=== PATIENT | male | born 2005 | race Caucasian/White ===

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

== ENCOUNTER 2025-04-27 09:47 | Outpatient (REF) | payer OTHER, SELFPAY ==
--- OUTSIDE RECORDS SUMMARY | 2025-04-27 10:18 | XMS_ITS | Clinical Summary ---
Author Organization [facility] Address [address] [place] [address] Phone Care Team Providers Care Electric Meter Tester Shop Name Role Phone Frederick Boswell MD Primary Care Provider Encounters Date Type Department Care Team Description 04/14/[address] [address] Micah Payton MD, MPH Appointment (Motility Consult) 03/30/[address] [address] Micah Payton MD, MPH Appointment (Motility consult) from Last 3 Months Social History Tobacco Use Types Packs/Day Years Used Date Smoking Tobacco: Never Assessed Education Answer Date Recorded Are you interested in more education? Not on devin e 01/25/2025 Are you concerned about learning? Not on file 01/25/2025 No 01/25/2025 No 01/25/2025 Digital Access Answer Date Recorded No 01/25/2025 No 01/25/2025 Reliable internet access at home? Not on file 01/25/2025 Device with a working camera? Not on file Sex and Gender Information Value Date Recorded Sex Assigned at Male 01/25/2025 3:22 PM EDT Legal Sex Female 3:30 PM EDT Gender Identity Male 01/25/2025 3:22 PM EDT Sexual Orientation Straight 01/25/2025 3: 22 PM EDT Plan of Treatment Upcoming Encounters Date Type Department Care Team ([facility] st Contact Info) Description 06/16/2025 8:20 AM EDT Telemedicine [facility] Medical Specialties [address] [facility] [place] [address] Micah Payton MD, MPH [address] [facility] [place] [address] [email or web address] Health Maintenance Due Date Last Done Comments MMR VACCINES (1 of 1 - Stand may series) 2006 BMI ASSESSMENT 2008 DEVELOPMENTAL/BEHAVIORAL SCR EENING (PHQ, PSC, or SWYC) 2008 COMBINED DTaP,Tdap,Td (1 - Tdap) 2012 DEPRESSION SCREENING 2017 SMOKING Hx and SMOKELESS TOB ACCO SCREENING 2018 VARICELLA VACCINES (1 of 2 - 13+ 2-dose series) 2018 HPV VACCINES (1 - 3-dose series) 2020 CHLAMYDIA SCREENING 2021 MENINGOCOCCAL VACCINES (B) ( 1 of 2 - Standard) 2021 ADOLESCENT UNIVERSAL LIPID SCREENING 2022 HEPATITIS C SCREENING 2023 HIV ONE-TIME SCREENING (18-6 5 YEARS) 2023 COVID-19 VACCINE (1 - 2023-2 5 season) 2024 HEPATITIS B VACCINES (1 of 3 - 19+ 3-dose series) 2024 HEPATITIS A VACCINES Aged Out No long er eligible based on patient's age to complete this topic HIB VACCINES Aged Out No longer eligi ble based on patient's age to complete this topic MENINGOCOCCAL VACCINES (ACWY) Aged Out No longer eligible based on patient's age to complete this topic PNEUMOCOCCAL VACCINES (0-49 years) Aged Out No longer eligible based on patient's age to complete this topic Medical Devices Not on file Procedures Procedure Name Priority Date/Time Associated Diagnosis Comments OUTSIDE LAB 04/22/2025 OUTSIDE IMAGING 04/22/2025 OUTSIDE PROCEDURE 04/22/2025 from Last 3 Months Results * Outside Imaging Report Only (04/22/2025) us Scanning Interface Provider IMG XR CHEST Rahel l Result * Outside Procedure (04/22/2025) us Scanning Interface Provider PROCEDURE/MINOR SURG ICAL PERFORMABLES Final Result * Outside Lab (04/22/2025) us Scanning Interface Provider LAB BLOOD ORDERABLES Final Result from Last 3 Months Insurance [employer] ADMINISTRAT[employer] ADMINISTRATORS [employer] B[employer]MINISTR[employer] B[employer]MINISTR[employer] Care Teams Electric Meter Tester Shop Relationship Specialty Start Date End Date Frederick Boswell MD [address] [place] [address] PCP - General Pediatrics 01/25/25 Additional Source Comments The information contained in this document represents components of the legal health record. It is not the complete legal health record.[facility]
[2025-04-27 13:57] LABS: MANUAL DIFF FLAG NO
[2025-04-27 14:07] LABS: Hematocrit 40.5 % (42.0-52.0); Hemoglobin 13.6 g/dl (14.0-18.0); Imm Gran Abs Auto 0.00 X10*3/uL (0.00-0.03); Imm Gran Pct Auto 0.0 % (0.0-0.4); Lymphocytes Absolute Auto 1.1 X10*3/uL (1.2-4.9); Mean Corpuscular HGB Conc 33.6 g/dl (31.0-36.0); Mean Corpuscular Hemoglobin 29.4 pg (27.0-33.0); Mean Corpuscular Volume 87.7 fL (80.0-98.0); NRBC Abs Auto 0.000 X10*3/uL (0.0-0.012); NRBC Pct Auto 0.0 /100WBC (0.0-0.2); Platelet Count 252 X10*3/uL (160-400); Red Blood Count 4.62 X10*6/uL (4.60-5.80); White Blood Count 3.3 X10*3/uL (4.8-10.8)
[2025-04-27 14:18] LABS: Alanine Aminotransferase 10 U/L (0-40); Albumin Level 5.0 g/dL (3.5-5.0); Alkaline Phosphatase 65 U/L (39-117); Anion Gap 13 (12-20); Aspartate Amino Transferase 17 U/L (5-37); Blood Urea Nitrogen 10 mg/dL (9-16); Calcium 9.5 mg/dL (8.4-10.2); Carbon Dioxide 29 mmol/L (22-29); Chloride 105 mmol/L (96-108); Estimated Glomerular Filt Rate > 60; Potassium 4.7 mmol/L (3.3-5.1); Sodium 142 mmol/L (135-145); Total Protein 7.2 g/dL (6.5-8.0)
== END 2025-04-27 09:48 | disposition home or self-care (01) ==
LOC: HO.HKASLDS 09:47
PROVIDERS: Visit Provider Psychiatry & Neurology Neurology
DX: G40.909 Epilepsy, unspecified, not intractable, without status epilepticus (principal); Z79.899 Other long term (current) drug therapy
CPT/HCPCS: 36415; 80053; 85025

== ENCOUNTER 2025-05-04 10:36 | Outpatient (REF) | payer OTHER, SELFPAY ==
--- OUTSIDE RECORDS SUMMARY | 2025-05-04 11:27 | XMS_ITS | Clinical Summary ---
Author Organization [facility] Address [address] [place] [address] Phone Care Team Providers Care Clerk Supervisor Name Role Phone Frederick Boswell MD Primary Care Provider Encounters Date Type Department Care Team Description 04/14/[address] [address] Micah Payton MD, MPH Appointment (Motility Consult) 03/30/[address] [address] Micah Payton MD, MPH Appointment (Motility consult) [...] Upcoming Encounters Date Type Department Care Team ([facility] st Contact Info) Description 06/16/2025 8:20 AM EDT Telemedicine [facility] Medical Specialties [address] [facility] [place] [address] Micah Payton MD, MPH [address] [facility] [place] [address] [email or web address] Health Maintenance Due Date Last [...] Final Result from Last 3 Months Insurance [employer] ADMINISTRATORS [employer] ADMINISTRATORS [employer] BENEFITS ADMINISTRATORS [employer]ENEF[employer] ADMINISTRATORS [employer] BENEF[employer] ADMINISTRATORS [employer]MINISTRATORS Care Teams Clerk Supervisor Relationship Specialty Start Date End Date Frederick Boswell MD [address] [place] [address] PCP - General Pediatrics 01/25/25 Additional Source Comments The information contained in this document represents components of the legal health record. It is not the complete legal health record.[facility]
[2025-05-04 13:55] LABS: Hemoglobin A1C 112.6514 umol/L; Total Hemoglobin (HGBA1C) 3670.7327 umol/L
[2025-05-05 07:08] LABS: Lyme Abs Screen <0.90 index
[2025-05-07 08:43] LABS: Arsenic, Blood <3 mcg/L (<23); Lead, Blood <1.0 mcg/dL (<3.5); Mercury, Blood <4 mcg/L (<=10)
== END 2025-05-04 10:37 | disposition home or self-care (01) ==
LOC: HO.HKASLDS 10:36
PROVIDERS: Visit Provider Nurse Practitioner Family
DX: Z01.84 Encounter for antibody response examination (principal); R11.0 Nausea; R51.9 Headache, unspecified; R63.0 Anorexia; R63.4 Abnormal weight loss
CPT/HCPCS: 36415; 82175; 83036; 83655; 83825; 86617; 86618

== ENCOUNTER 2025-07-25 09:27 | Outpatient (REF) | payer OTHER, SELFPAY ==
--- OUTSIDE RECORDS SUMMARY | 2025-07-25 10:52 | XMS_ITS ---
Author Name [facility] Organization Unknown Results Test Name/Text Value Interpretation Date Range Source # MONOCYTES 0.51 K/UL 06/16/2025 0.2 - 1 [facility] RBC 5.03 MILLION/uL 06/16/2025 4.5 - 6 [facility] IMMATURE GRANULOCYTES 0.2 % 06/16/2025 [facility] PLATELET 371.0 K/uL 06/16/2025 150 - 400 [facility] RDW-SD 40.1 fL 06/16/2025 35 - 46 [facility] MONOCYTES 9.0 % 06/16/2025 [facility] MCV 87.9 fL 06/16/2025 80 - 99 [facility] # NRBC 0.0 k/UL 06/16/2025 0 - 0.1 [facility] EOSINOPHILS 0.5 % 06/16/2025 [facility] HEMATOCRIT 44.2 % 06/16/2025 39 - 52 [facility] MCHC 33.0 g/dL 06/16/2025 31 - 36 [facility] WBC 5.7 K/uL 06/16/2025 4 - 10 [facility] NEUTROPHILS 50.2 % 06/16/2025 [facility] # LYMPHOCYTES 2.23 K/UL 06/16/2025 0.8 - 4 [facility] NUCLEATED RBC 0.0 NRBC/100 WBC 06/16/2025 0 - 0 [facility] # IMMATURE GRANULOCYTES 0.01 K/UL 06/16/2025 0 - 0 .1 [facility] # NEUTROPHILS 2.84 K/uL 06/16/2025 2 - 8 [facility] BASOPHILS 0.7 % 06/16/2025 [facility] # BASOPHILS 0.04 K/UL 06/16/2025 0 - 0.2 [facility] LYMPHOCYTES 39.4 % 06/16/2025 [facility] HEMOGLOBIN 14.6 g/dL 06/16/2025 14 - 18 [facility] # EOSINOPHILS 0.03 K/UL 06/16/2025 0 - 0.5 [facility] MCH 29.0 pg 06/16/2025 25 - 34 [facility]
--- OUTSIDE RECORDS SUMMARY | 2025-07-25 10:52 | XMS_ITS | Clinical Summary ---
Author Organization [facility] Address [address] [place] [address] Phone Care Team Providers Care Burglar Alarm Inspector Name Role Phone Frederick Boswell MD Primary Care Provider Allergies No known active allergies Medications aluminum-magnesiu m hydroxide-simethi cone (MAALOX) 200-200-20 mg/5 mL Susp Take 10 mL by mouth every 6 (six) hours as needed. 09/10/20 24 Active ethosuximide (ZARONTIN) 250 mg capsule Take 250 mg by mouth 2 (two) times a day. 02/01/20 25 Active midazolam (NAYZILAM) 5 mg/spray (0.1 mL) [place] nasal spray 1 spray by Intranasal route every 10 (ten) minutes as needed for seizures. 05/10/20 25 Active omeprazole (PRILOSEC) 20 MG capsule Take 20 mg by mouth daily. 05/09/20 25 Active atomoxetine (STRATTERA) 18 mg capsule Take 18 mg by mouth daily. 06/15/20 25 Active DULoxetine (DRIZALMA) 30 mg sprinkle capsule Take 30 mg by mouth 2 (two) times a day. 04/22/20 25 Active hydrOXYzine (VISTARIL) 25 MG capsule Take 25 mg by mouth 3 (three) times a day as needed for anxiety. 05/09/20 25 Active QUEtiapine (SEROQUEL) 25 MG tablet Take 25 mg by mouth nightly at bedtime. 11/15/19 Active ondansetron (ZOFRAN-ODT) 4 MG disintegrating tablet Take 4 mg by mouth every 8 (eight) hours as needed for nausea. 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 Encounters Date Type Department Care Team Description 07/14/2025 4:15 PM EDT Telemedicine [facility] [address] [place] [address] Amber Kennedy NP Functional dyspepsia (Primary Dx); Recurrent major depressive disorder, in remission; Anxiety; Avoidant-restrictive food intake disorder (ARFID); Medical cannabis use; Intractable epilepsy without status epilepticus, unspecified epilepsy type 07/12/2025 Documentation [facility] Psychiatry [address] [address] [place], [facility] 07/12/2025 Documentation [facility] [address] [address] Warner, Christine 07/05/2025 Telephone [facility] Medical Specialties [address] [address] Janee Anguiano 07/04/2025 12:00 PM EDT Telemedicine [facility] [address] [place] [address] Keyanna Tucker NP Functional dyspepsia (Primary Dx); Anxiety; Intractable epilepsy without status epilepticus, unspecified epilepsy type; Recurrent major depressive disorder, in remission; Avoidant-restrictive food intake disorder (ARFID); Medical cannabis use; Underachievement in school 06/27/2025 Telephone [facility] Psychiatric Specialties at [address] [place] [address] Unknown, MD Darrick 06/24/2025 Telephone [facility] Psychiatric Specialties at [address] [place] [address] Unknown, MD Darrick 06/21/2025 Orders Only [address] [address] Micah Payton MD, MPH 06/16/2025 8:20 AM EDT Telemedicine [address] [address] Micah Payton MD, MPH Dyspepsia (Primary Dx); Visceral hypersensitivity syndrome; Gastroparesis 06/16/2025 Orders Only [address] [address] Micah Payton MD, MPH 05/05/2025 Transcribe Orders [facility] [address] [place] [address], [address] [place] [address] Frederick Boswell MD Weight loss (Primary Dx) from Last 3 Months Social History Tobacco Use Types Packs/Day Years Used Date Smoking Tobacco: Some Days Cigarettes Smokeless Tobacco: Never Tobacco Cessation:Ready to Q uit: Not Asked; Counseling Given: Not Answered Education Answer Date Recorded Are you interested [...] Upcoming Encounters Date Type Department Care Team (Late st Contact Info) Description 08/04/2025 4:30 PM EST Telemedicine [facility] [address] [place] [address] Keyanna Tucker NP [address] [place] [address] [email or web address] 08/08/2025 1:00 PM EST Office Visit [facility] Women's Health [address] [facility] [address] [place] [address] Krystian Angeles MD [address] [place] [address] [email or web address] Health Maintenance Due Date Last Done Comments MMR VACCINES (1 of 1 - Standard series) 2006 BMI ASSESSMENT 2008 COMBINED DTaP,Tdap,Td (1 - Tdap) 2012 SMOKING Hx and SMOKELESS TOBACCO SCREENING 2018 VARICELLA VACCINES (1 of 2 - 13+ 2-dose series) 2018 HPV VACCINES (1 - 3-dose series) 2020 CHLAMYDIA SCREENING 2021 ADOLESCENT UNIVERSAL LIPID SCREENING 2022 HEPATITIS C SCREENING 2023 HIV ONE-TIME SCREENING (18-6 5 YEARS) 2023 HEPATITIS B VACCINES (1 of 3 - 19+ 3-dose series) 2024 PNEUMOCOCCAL VACCINES (0-49 years) (1 of 2 - PCV) 2024 INFLUENZA VACCINE (#1) 2025 , 06/14/2022, 09/29/2021 COVID-19 VACCINE (3 - 2024-2 6 season) 2025 03/27/2021, 03/06/2021 REPEAT PHQ 08/12/2025 07/12/2025, 07/12/2025 DEPRESSION SCREENING 07/12/2026 07/12/2025, 07/12/2025 DEVELOPMENTAL/BEHAVIORAL SCREENING (PHQ, PSC, or SWYC) 07/12/2026 07/12/2025, 07/12/2025 MENINGOCOCCAL VACCINES (ACWY) Completed 06/14/2022 MENINGOCOCCAL VACCINES (B) Completed 01/07, 06/14/2022 HEPATITIS A VACCINES Aged Out No long er eligible based on patient's age to complete this topic HIB VACCINES Aged Out No longer eligi ble based on patient's age to complete this topic Medical Devices Not on file Procedures Procedure Name Priority Date/Time Associated Diagnosis Comments OUTSIDE LAB 06/09/2025 from Last 3 Months Results * Outside Lab (06/09/2025) us Scanning Interface Provider LAB BLOOD BKR ORDERA BLES Final Result from Last 3 Months Insurance [employer] ADMINISTRATORS [employer] ADMINISTRATORS [employer] BENEFITS ADMINISTRATORS [employer]EF[employer] ADMINISTRATORS [employer]EF[employer] ADMINISTRATORS Member Subscriber Plan / Payer (Ef fective 2023-Present) Name:Gautam Aguillon Relation to Subscriber:Child Name:NAMAN AGUILLON Date of :1968 (Home) Address: [address] [place] [address] Payer ID:[id number] (NA) Type:PPO Address: [address] [employer] ADMINISTRATORS [employer]MINIST[employer]AT[employer] Member Subscriber Plan / Payer (Ef fective 2023-Present) Name:Gautam Aguillon Relation to Subscriber:Child Name:NAMAN AGUILLON Date of :1968 (Home) Address: [address] [place] [address] Payer ID:[id number] (NA) Type:PPO Address: [place] [id number] Care Teams Burglar Alarm Inspector Relationship Specialty Start Date End Date Frederick Boswell MD [address] [address] PCP - General Pediatrics 01/25/25 Additional Source Comments The information contained in this document represents components of the legal health record. It is not the complete legal health record.[facility]
[2025-07-25 13:40] LABS: Cholesterol 114 mg/dL (<200); HDL Cholesterol 42 mg/dL (>40); Triglycerides 61 mg/dL (<150)
[2025-07-29 16:39] LABS: VITAMIN D (1,25 OH) D3 29 pg/mL; Vit D (1,25-Dihydroxy) Total 29 pg/mL (18-72); Vitamin D (1,25 OH) D2 <8 pg/mL
== END 2025-07-25 09:28 | disposition home or self-care (01) ==
LOC: HO.HKASLDS 09:27
PROVIDERS: PCP Pediatrics Adolescent Medicine
DX: F41.1 Generalized anxiety disorder (principal); F32.A Depression, unspecified; E55.9 Vitamin D deficiency, unspecified; Z79.899 Other long term (current) drug therapy
CPT/HCPCS: 36415; 80061; 82652; 82947; 83036; 84443